=== PATIENT | female | born 1975 | race Caucasian/White ===

== ENCOUNTER 2017-03-23 06:43 | Emergency (ER) | payer MEDICAID ==
[~2017-03-23] VITALS: Ht 167.6 cm; Wt 97.0 kg
[~2017-03-23 06:43] MED LIST: CEPH-443 PO; IBUP-1542 PO; NAPR-260 PO; NAPR-688 PO; TYL500 PO
[2017-03-23 06:44] VITALS: Ht 167.6 cm; Wt 97.0 kg
[2017-03-23] MEDS ORDERED: SULF1TAB31 PO (08:17)
[2017-03-23] MEDS ORDERED: BEN25 PO (08:17)
[2017-03-23] MEDS ORDERED: CEPH-443 PO (08:18)
--- NOTE | 2017-03-23 08:24 | ERD ---
ER Documentation Chief Complaint Date/Time DATE: 03/23/17 TIME: 08:20 Chief Complaint LT ARMPIT ABSCESS "SPIDER BITE" WITH PAIN AND SWELLING HPI This 41-year-old female who presents to the emergency department today with her son complaining of a spider bite around her left armpit . States that she saw the spider. States she is taking Tylenol for the pain. Denies any fevers or chills. ROS All systems reviewed and are negative except as per history of present illness. Medications Home Meds Active Scripts Cephalexin* (Keflex*) 500 Mg Capsule, 500 MG PO QID for 7 Days, CAP Prov:YOUSIF MARTINO PA-C 03/23/17 Sulfamethoxazole/Trimethoprim* (Bactrim Ds* Tablet) 1 Each Tablet, 1 TAB PO BID for 7 Days, #14 TAB Prov:YOUSIF MARTINO PA-C 03/23/17 Diphenhydramine Hcl* (Benadryl*) 25 Mg Cap, 25 MG PO Q6, #30 CAP Prov:YOUSIF MARTINO PA-C 03/23/17 Naproxen* (Naprosyn*) 500 Mg Tablet, 500 MG PO BID Y for PAIN AND/OR INFLAMMATION, #30 TAB Prov:KAELYN DONALDSON PA-C 10/01/16 Ibuprofen* (Motrin*) 600 Mg Tab, 600 MG PO Q6, #30 TAB Prov:MAGUI LUCAS 04/18/16 Cephalexin* (Keflex*) 500 Mg Capsule, 500 MG PO QID for 7 Days, CAP Prov:MAGUI LUCAS 04/18/16 Reported Medications Naproxen* (Naproxen*) 500 Mg Tablet, 500 MG PO DAILY Y for PAIN, TAB 08/14/14 Acetaminophen* (Tylenol*) 500 Mg Tab, 500 MG PO DAILY Y for PAIN, TAB 08/14/14 Allergies Allergies: Coded Allergies: No Known Allergy (Unverified , 08/14/14) PMhx/Soc Medical and Surgical Hx: pt denies Medical Hx, pt denies Surgical Hx History of Surgery: No Anesthesia Reaction: No Hx Neurological Disorder: No Hx Respiratory Disorders: No Hx Cardiac Disorders: No Hx Psychiatric Problems: No Hx Miscellaneous Medical Probl: No Hx Alcohol Use: No Hx Substance Use: No Hx Tobacco Use: No Smoking Status: Never smoker Physical Exam Vitals Vital Signs Date Time Temp Pulse Resp B/P Pulse Ox O2 Delivery O2 Flow Rate FiO2 03/23/17 06:44 98.4 75 16 108/67 96 Physical Exam Const: Obese, no acute distress Head: Atraumatic Eyes: Normal Conjunctiva ENT: Normal External Ears, Nose and Mouth. Neck: Full range of motion..~ No meningismus. Resp: Clear to auscultation bilaterally Cardio: Regular rate and rhythm, no murmurs Skin: Left axilla with area of firmness and induration and localized erythema and purulent drainage. Right axilla with evidence of lymph node swelling Neur: Awake and alert Psych: Normal Mood and Affect Procedures/MDM This 41-year-old female presents the emergency department today with her son complaining of an insect bite to her left armpit. On physical exam patient had evidence of a bite deepti with some scabbing and some localized erythema and firmness and induration. I did remove part of the scab and applied pressure to the area and a large amount of purulent drainage was removed from the area. Patient symptoms at this time was consistent with infected insect bite. Patient is afebrile and otherwise well-appearing. I do not feel that she requires formal incision and drainage at this time given that the wound is already draining. Low suspicion for sepsis, deep space tracking infection. Patient indicated she did not require more pain medication and the Tylenol that she took was fine. Patient was given a prescription for Benadryl, Bactrim and Keflex and instructed to follow-up in 48 hours for wound check. Area in the right axilla is likely lymph node. I have low suspicion for abscess formation in right axilla. At this time the patient is stable for discharge and outpatient management. Patient should follow up with their PCP in the next 1-2 days. They may return to the emergency department sooner for any persistent or worsening of symptoms. Patient understood and agreed with the plan. Departure Diagnosis: Primary Impression: Infected bite wound Condition: Fair Patient Instructions: Insect Sting/Bite, Infected [facility] Usted se blakely hecho un examen mdico de control que le indica que no est en leonidas condicin que requiera tratamiento urgente en el Departamento de Emergencia. Un estudio ms profundo y el tratamiento de puentes condicin pueden esperar sin ningn riesgo hasta que usted sea atendida/o en el consultorio de puentes mdico o leonidas cl kasey. Es responsabilidad suya arreglar leonidas chito para el seguimiento del hilda. MANEJO DE CONDICIONES NO URGENTES EN EL FUTURO 1) Si usted tiene un mdico de atencin primaria: Usted debera llamar a puentes mdico de atencin primaria antes de venir al departamento de emergencia. Despus de las horas de consultorio, puentes doctor o puentes asociado/a est disponible por telfono. El mdico o enfermero de bienvenido en el servicio telefnico puede asesorarle por [facility] [facility] para atender el problema, o hilda contrario se puede programar leonidas chito. 2) Si usted no tiene un mdico de atencin primaria: Llame al mdico o clnica de referencia que aparece abajo isabella las horas de consultorio para hacer leonidas chito para que le vean. CLINICAS: [facility] [phone] [facility] [phone] [facility] [phone] [facility] [place] [phone] [facility] [place] [id number] [phone] [facility]. [phone] [address] Additional Instructions: Llame al doctor MAANA y dipti leonidas CHITO PARA DENTRO DE 1-2 GIRALDO.Dgale a la secretaria que nosotros le instruimos hacer esta chito.Avise o llame si puentes condicin se empeora antes de la chito. Regresa aqui si peor o no mejor. Wound check in 48 hours Take antibiotics as prescribed Take Benadryl for itching Take Tylenol or Motrin for pain YOUSIF MARTINO PA-C Mar 23, 2017 08:24
== END 2017-03-23 08:32 | disposition home or self-care (01) ==
LOC: FTE 06:43
DX: S40.862A Insect bite (nonvenomous) of left upper arm, initial encounter (principal); L08.9 Local infection of the skin and subcutaneous tissue, unspecified; W57.XXXA Bitten or stung by nonvenomous insect and other nonvenomous arthropods, initial encounter; Y92.9 Unspecified place or not applicable
CPT/HCPCS: 99284

== ENCOUNTER 2017-04-20 08:02 | Emergency (ER) | payer MEDICAID ==
[~2017-04-20] VITALS: Wt 90.6 kg
[~2017-04-20 08:02] MED LIST changes: +BEN25 PO; +SULF1TAB31 PO
--- NOTE | 2017-04-20 08:25 | ERD ---
ER Documentation Chief Complaint Date/Time DATE: 04/20/17 TIME: 08:23 Chief Complaint LEFT RING FINGER RING REMOVAL . 3 DAYS MILD SWELLING. NO DEFORMITY HPI 41-year-old female comes in for a gold ring that has been stuck on her right fourth digit for the past 3 days. She states that she has tried multiple ways to remove the ring however has been stuck. She has no numbness, no weakness., No fevers, localized pressure-like pain only. ROS All systems reviewed and are negative except as per history of present illness. Medications Home Meds Active Scripts Cephalexin* (Keflex*) 500 Mg Capsule, 500 MG PO QID for 7 Days, CAP Prov:YOUSIF MARTINO PA-C 03/23/17 Sulfamethoxazole/Trimethoprim* (Bactrim Ds* Tablet) 1 Each Tablet, 1 TAB PO BID for 7 Days, #14 TAB Prov:YOUSIF MARTINO PA-C 03/23/17 Diphenhydramine Hcl* (Benadryl*) 25 Mg Cap, 25 MG PO Q6, #30 CAP Prov:YOUSIF MARTINO PA-C 03/23/17 Naproxen* (Naprosyn*) 500 Mg Tablet, 500 MG PO BID Y for PAIN AND/OR INFLAMMATION, #30 TAB Prov:KAELYN DONALDSON PA-C 10/01/16 Ibuprofen* (Motrin*) 600 Mg Tab, 600 MG PO Q6, #30 TAB Prov:MAGUI LUCAS 04/18/16 Cephalexin* (Keflex*) 500 Mg Capsule, 500 MG PO QID for 7 Days, CAP Prov:MAGUI LUCAS 04/18/16 Reported Medications Naproxen* (Naproxen*) 500 Mg Tablet, 500 MG PO DAILY Y for PAIN, TAB 08/14/14 Acetaminophen* (Tylenol*) 500 Mg Tab, 500 MG PO DAILY Y for PAIN, TAB 08/14/14 Allergies Allergies: Coded Allergies: No Known Allergy (Unverified , 08/14/14) PMhx/Soc History of Surgery: No Anesthesia Reaction: No Hx Neurological Disorder: No Hx Respiratory Disorders: No Hx Cardiac Disorders: No Hx Psychiatric Problems: No Hx Miscellaneous Medical Probl: No Hx Alcohol Use: No Hx Substance Use: No Hx Tobacco Use: No Physical Exam Vitals Vital Signs Date Time Temp Pulse Resp B/P Pulse Ox O2 Delivery O2 Flow Rate FiO2 04/20/17 08:12 98.0 81 20 119/64 98 Physical Exam General: Well-developed, well-nourished. The patient appears in no acute distress. HEENT: Head is normocephalic, atraumatic. No scleral icterus. Neck: Supple. Nontender. Lungs: Clear to auscultation. Normal air movement. Heart: Regular rate and rhythm. S1 and S2 are normal. No murmurs, gallops, or rubs. Abdomen: Nondistended. Extremities: Ring is stuck on the right fourth digit. Capillary refill less than 2 seconds, patient is full range motion at DIP, PIP and MCP joint. Neurologic: Alert and oriented 3. No focal deficits. Normal speech and gait. Skin: Normal turgor. No rash or lesions. Procedures/MDM ED course: Foreign body removal was done with a clamp. Patient was neurovascular intact post ring removal. Medical decision making: This is a 41-year-old female comes in for a ring that has been stuck on her right fourth digit for the last 3 days. The ring was removed completely without any complications. She is neurovascularly intact without any signs of infection or trauma. Departure Diagnosis: Primary Impression: Constrictive jewelry of finger Condition: Good Patient Instructions: Foreign Body, Soft Tissue (Removed) KAELYN DONALDSON PA-C Apr 20, 2017 08:25
== END 2017-04-20 08:23 | disposition home or self-care (01) ==
LOC: E/R 08:02 → FTE 08:23
DX: S60.444A External constriction of right ring finger, initial encounter (principal); W49.04XA Ring or other jewelry causing external constriction, initial encounter; Y92.9 Unspecified place or not applicable
CPT/HCPCS: 99282